=== PATIENT | female | born 1960 | race Caucasian/White ===

== ENCOUNTER 2022-03-28 07:03 | Day surgery (SDC) | payer OTHER ==
[~2022-03-28] VITALS: Ht 172.7 cm; Wt 98.6 kg
[2022-03-28 07:12] VITALS: BP 105/47
[2022-03-28] MEDS ORDERED: VERA240C2 PO (07:39)
[2022-03-28] MEDS ORDERED: OMEP20CA16 PO (07:40)
[2022-03-28] MEDS ORDERED: ESTR0.5T PO (07:40)
[2022-03-28] MEDS ORDERED: SUMA50TA PO (07:42)
[2022-03-28] MEDS ORDERED: diphenhydrAMINE 50 mg/ml inj ONE (07:50)
[2022-03-28] MEDS ORDERED: MIDAZolam 1 MG/ML 5ML VIAL ONE (07:50)
[2022-03-28] MEDS ORDERED: fentaNYL/PF 50MCG/1 ML 2ML syringe ONE (07:51)
[2022-03-28 08:50] VITALS: BP 120/65
[2022-03-28 09:00] VITALS: BP 113/63
[2022-03-28 09:10] VITALS: BP 107/70
[2022-03-28 09:14] VITALS: BP 112/71
== END 2022-03-28 09:20 | disposition home or self-care (01) ==
LOC: GI LAB 07:03
PROVIDERS: ATTEND Internal Medicine Gastroenterology
DX: Z12.11 Encounter for screening for malignant neoplasm of colon (principal); Z80.0 Family history of malignant neoplasm of digestive organs
CPT/HCPCS: 45378; 99152; J1200; J2250; J3010; J7030; Z7512; 99153; A4620